=== PATIENT | male | born 1990 | race American Indian/Alaskan Native ===

== ENCOUNTER 2017-01-14 15:23 | Emergency (ER) | payer OTHER ==
[2017-01-14 15:43] VITALS: BP 158/90
[2017-01-14] MEDS ORDERED: ROCEPHIN IM ONE (16:00)
[2017-01-14] MEDS ORDERED: XYLOCAINE 1% MPF 5 mL INFILTRATI ONE (16:00)
[2017-01-14] MEDS ORDERED: ZITHROMAX PO ONE (16:00)
--- NOTE | 2017-01-14 16:01 | Emergency Department Report ---
ED Dysuria HPI - HPI Chief Complaint: Urogenital-Male Stated Complaint: URINARY DISCHARGE/BURNING Time Seen by Provider: 01/14/17 15:54 Duration: 3 Days Symptoms: Dysuria: Yes, Frequency: No, Suprapubic Pain: No, Flank Pain: No, Fever: No, Hematuria: No, Abdominal Pain: No, Previous UTI's: No ED Review of Systems ROS: Stated complaint: URINARY DISCHARGE/BURNING Other details as noted in HPI Comment: All other systems reviewed and negative Genitourinary: dysuria ED Past Medical Hx - Past Medical History Previous Medical History?: No - Surgical History Past Surgical History?: No - Social History Smoking Status: Current Some Day Smoker Substance Use Type: Alcohol Dysuria Exam - Exam General: Vital signs noted. No distress. Alert and acting appropriately. Exam: Yes Moist Mucous Membranes, No CVA Tenderness, No Abdominal Tenderness, No Rigidity or Guarding ED Course Vital Signs 01/14/17 15:41 Temperature 98.5 F Pulse Rate 85 Respiratory 16 Rate Blood Pressure 158/90 O2 Sat by Pulse 98 Oximetry - Reevaluation(s) Reevaluation #1: 01/14/17 16:19 HOME FROM [employer] WAS W GF NOW TINGLE W URINATION SHE IS CURRENTLY BEING TESTED AT ANOTHER FACILITY VSS NO ABD PAIN NO TEST PAIN NO FEVER NON TOXIC GIVEN EXPOSURE WILL TX. DC HOME ED Medical Decision Making - Medical Decision Making SEE NOTE - Differential Diagnosis STD EXPOSURE Critical care attestation.: If time is entered above; I have spent that time in minutes in the direct care of this critically ill patient, excluding procedure time. ED Disposition Clinical Impression: STD exposure Disposition: DC- TO HOME OR SELFCARE Is pt being admited?: No Does the pt Need Aspirin: No Condition: Stable Instructions: Chlamydia Infection (ED), Sexually Transmitted Diseases (ED), Gonococcal Urethritis (ED) Additional Instructions: SAFE SEX Referrals: PRIMARY CAREMD [Primary Care Provider] - 3-5 Days SMITH AQUINO MD [Staff Physician] - 3-5 Days Time of Disposition: 15:59
[2017-01-14 16:20] LABS: Bilirubin,Urine NEG (Negative); Blood,Urine NEG (Negative); Ketones,Urine NEG (Negative); Leukocyte Esterase,Urine NEG (Negative); Nitrite,Urine NEG (Negative); Protein,Urine <15 mg/dL mg/dL (Negative); Urobilinogen,Urine < 2.0 mg/dL (<2.0)
== END 2017-01-14 16:30 | disposition home or self-care (01) ==
LOC: ED 15:23
DX: R30.0 Dysuria (principal); Z20.2 Contact with and (suspected) exposure to infections with a predominantly sexual mode of transmission; F17.200 Nicotine dependence, unspecified, uncomplicated
CPT/HCPCS: 81001; 96372; 99283; J0696

== ENCOUNTER 2017-02-03 19:18 | Emergency (ER) | payer OTHER ==
[2017-02-03 19:23] VITALS: BP 178/87
--- NOTE | 2017-02-03 19:36 | Emergency Department Report ---
ED Rash HPI - HPI Chief Complaint: Skin Rash Stated Complaint: RASH Time Seen by Provider: 02/03/17 19:26 Duration: 2 Days Location: Other (HANDS, FEET, L TORSO) Suspected Cause: Other (SLEPT AT FRIENDS HOUSE AND NEXT DAY DEVELOPED THESE LARGE WELPS SUGGESTIVE OF SCABIES BC ON HANDS AND FEET; BUT LESION ON SIDE MORE LIKE BEDBUGS V GEN RX TO THE BITES) Rash Symptoms: Yes Itching, No Facial Swelling, No Tongue/Oral Swelling, No Breathing Difficulties, No Choking Sensation, No Wheezing/Dyspnea, No Peeling, No Blistering, No Fever, No Lightheaded, No Malaise, No Myalgias Severity: moderate ED Review of Systems ROS: Stated complaint: RASH Other details as noted in HPI Comment: All other systems reviewed and negative Skin: rash ED Past Medical Hx - Past Medical History Previous Medical History?: No - Surgical History Past Surgical History?: No - Social History Smoking Status: Current Some Day Smoker Substance Use Type: Alcohol - Medications Home Medications: Home Medications Medication Instructions Recorded Confirmed Last Taken Type Permethrin [Elimite] 60 gm TP ONCE #1 cream..g. 02/03/17 Unknown Rx predniSONE [Deltasone] 50 mg PO QDAY #5 tab 02/03/17 Unknown Rx Rash Exam - Exam General: Vital signs noted. No distress. Alert and acting appropriately. HEENT: No Periorbital Edema, No Conjuctival Injection, No Chemosis, No Perioral Edema, No Tongue Edema, No Uvular Edema, No Compromised Airway, No Drooling Lungs: Yes Good Air Exchange, No Wheezes, No Ronchi, No Stridor, No Cough, No Labored Respirations, No Retractions Heart: Yes Regular, No Murmur Skin: Yes Erythema, No Urticarial Rash, No Maculopapular Rash, No Morbilliform rash, No Bulla(e), No Excoriations, No Weeping, No Tenderness, No Edema, No Encrustations, No Other Other: Positive: Abdomen Normal, Neurologic Normal, Musculoskeletal Normal ED Course Vital Signs 02/03/17 19:22 Temperature 98 F Pulse Rate 96 H Respiratory 16 Rate Blood Pressure 178/87 O2 Sat by Pulse 99 Oximetry - Reevaluation(s) Reevaluation #1: 02/03/17 19:49 ABC INTACT RASH P SLEEPING AT SOMEONES HOME YEST ED Medical Decision Making - Medical Decision Making SEE NOTE - Differential Diagnosis RASH URTICARIAL OF ALLERGY VS SCABIES/BEDBUGS Critical care attestation.: If time is entered above; I have spent that time in minutes in the direct care of this critically ill patient, excluding procedure time. ED Disposition Clinical Impression: Bed bug bite Disposition: DC- TO HOME OR SELFCARE Is pt being admited?: No Does the pt Need Aspirin: No Condition: Stable Instructions: Insect Bite or Sting (ED) Additional Instructions: CLEAN HOME INSTRUCTED MEDS ORDERED FOLLOW UP WITH PCP OR DERM IF PERSISTS BENADRYL 50 MG ORALLY EVERY 6-8 HOURS FOR ITCHING Prescriptions: Permethrin [Elimite] 60 gm TP ONCE #1 cream..g. predniSONE [Deltasone] 50 mg PO QDAY #5 tab Referrals: WENDY MART MD [Referring] - 3-5 Days RAIZA QUESADA MD [Referring] - 3-5 Days Time of Disposition: 19:37
[2017-02-03] MEDS ORDERED: DELTASONE PO ONE (19:39)
== END 2017-02-03 20:01 | disposition home or self-care (01) ==
LOC: ED 19:18
DX: R21 Rash and other nonspecific skin eruption (principal); L29.9 Pruritus, unspecified; F17.200 Nicotine dependence, unspecified, uncomplicated
CPT/HCPCS: 99282; J7512